=== PATIENT | female | born 1950 | race Caucasian/White ===

== ENCOUNTER 2018-12-25 05:29 | Day surgery (SDC) | payer MEDICARE, BC ==
[~2018-12-25] VITALS: Ht 160 cm; Wt 74.8 kg
[2018-12-25] VITALS (8 sets, daily range): BP systolic 128–152; BP diastolic 61–73; PULSE 66–76; RESP 16–22; Ht 160 cm; Wt 74.8 kg
[2018-12-25] MEDS ORDERED: SOD CHLORIDE 0.9% 1,000 ML IV SCH (06:00)
[2018-12-25] MEDS ORDERED: CYCLOPENTOLATE/PHENYLEPH 2 ML OPH OPER SCH (06:00)
[2018-12-25] MEDS ORDERED: DICLOFENAC 0.1% 2.5 ML OPH OPER SCH (06:00)
[2018-12-25] MEDS ORDERED: TROPICAMIDE 1% 15 ML OPH OPER SCH (06:00)
[2018-12-25] MEDS ORDERED: MOXIFLOXACIN 0.5% 3 ML OPH OPER SCH (06:00)
--- NOTE | 2018-12-25 06:20 | PREOPHP ---
DATE OF ADMISSION: 12/25/2018 HISTORY OF PRESENT ILLNESS: This 68-year-old patient is admitted for elective cataract surgery of he r left eye. 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 The anthony ent has had decreased vision over the last few years involving primarily the left eye. The patient's systemic history is positive for hypertension. Also, there is colitis and vertebral osteoporosis. CURRENT MEDICATIONS: Include: 1. Valsartan/HCTZ. 2. Voltaren gel. 3. Ibandronate. 4. Gabapentin. 5. Clonazepam. 6. Sulfasalazine. ALLERGIES: THERE ARE NO KNOWN ALLERGIES. PHYSICAL EXAMINATION: The visual acuity with best correction is 20/40 in the right eye and 20/50 in the left eye. Slit-lamp examination reveals anterior cortical and moderate nuclear sclerotic catarac t in the left eye. Applanation tonometry is 22 mmHg in both eyes. Examination of the retina reveals small optic disc cupping in both eyes. Examination of the macula reveals some hyperpigmentation in the macula of the left eye (patient was evaluated by a retina-vitreous surgeon preoperatively and a n otation was made that cataract surgery was indicated and that there may be some limitation of visual improvement after surgery). DIAGNOSIS: Nuclear sclerotic cataract, left eye. PLAN: Cataract extraction with lens implant, left eye. The risks and alternatives to the surgery de leon ve been discussed with the patient, as well as the hope for improvement of visual acuity, leading to a greater ability to perform activities of daily living. The patient understands the limitation prev iously described related to her myopic retinopathy and agrees to proceed with surgery. Dictated By: JHONATAN WEISS/OCTAVIO Conf#: [id number] DID#: [id number]
[2018-12-25] MEDS ORDERED: DEXAMETHASONE 4 MG/ML 1 ML INJ ONE (06:46)
[2018-12-25] MEDS ORDERED: TETRACAINE 0.5% 4 ML OPH ONE (06:46)
[2018-12-25] MEDS ORDERED: EPINEPHrine 1 MG INJ ONE (06:46)
[2018-12-25] MEDS ORDERED: LIDOCAINE 4% (MPF) 5 ML INJ ONE (06:46)
[2018-12-25] MEDS ORDERED: CARBACHOL 0.01% 1.5 ML OPH INJ ONE (06:46)
[2018-12-25] MEDS ORDERED: CEFAZOLIN 1 GM INJ ONE (06:46)
[2018-12-25] MEDS ORDERED: GENTAMICIN 80 MG INJ ONE (06:46)
[2018-12-25] MEDS ORDERED: VALS1TAB74 PO (06:58)
[2018-12-25] MEDS ORDERED: SULF500T5 PO (06:59)
[2018-12-25] MEDS ORDERED: GABA100C14 PO (06:59)
[2018-12-25] MEDS ORDERED: CLON-429 PO (07:00)
[2018-12-25] MEDS ORDERED: ESOM40CA51 PO (07:00)
[2018-12-25] MEDS ORDERED: CANA1000R PR (07:01)
--- NOTE | 2018-12-25 07:05 | PREAC ---
Date/Time of Note Date/Time of Note DATE: 12/25/18 TIME: 07:02 Anesthesia Eval and Record Evaluation Time Pre-Procedure Interview DATE: 12/25/18 TIME: 07:02 Age 68 Sex female NPO: 8 hrs Preoperative diagnosis Left eye cataract Planned procedure Cataract extraction with IOL insertion Past Medical History Past Medical History: Includes Cardio: HTN Pulm: Sleep Apnea GI: Other Surgery & Anesthesia Issues No known issue Meds Anticoagulation: No Beta Shakira within 24 hr: No Reason Beta Shakira not given: Pt. not on B-Shakira Reported Medications Mesalamine* (Canasa*) 1,000 Mg Supp, 1000 MG ID HS, SUPP.RECT 12/25/18 Clonazepam* (Klonopin*) 0.5 Mg Tab, 0.5 MG PO DAILY PRN for ANXIETY, TAB 12/25/18 Esomeprazole Magnesium (Esomeprazole Magnesium) 40 Mg Capsule.dr, 40 MG PO BEFORE BREAKFAST, #30 CAP 12/25/18 Gabapentin* (Gabapentin*) 100 Mg Capsule, 100 MG PO BID, #90 CAP 12/25/18 Sulfasalazine* (Sulfazine*) 500 Mg Tablet, 1000 MG PO TID, TAB 12/25/18 Valsartan-Hydrochlorothiazide (Valsartan-HCTZ) 80-12.5 Mg Tablet, 1 TAB PO DAILY, #30 TAB 12/25/18 Current Medications Diclofenac Sodium (Voltaren 0.1%) 1 drop Q5 MIN X 3 OPER Last administered on 12/25/18at 06:04; Admin Dose 1 DROP; Start 12/25/18 at 06:00 Tropicamide (Mydriacyl 1%) 1 drop Q5 MIN X3 OPER Last administered on 12/25/18at 06:04; Admin Dose 1 DROP; Start 12/25/18 at 06:00 Moxifloxacin HCl (Vigamox) 1 drop Q5 MIN X 3 OPER Last administered on 12/25/18at 06:04; Admin Dose 1 DROP; Start 12/25/18 at 06:00 Cyclopentolate/ Phenylephrine (Cyclomydril Oph 2 ml) 1 drop Q5 MIN X 3 OPER Last administered on 12/25/18at 06:04; Admin Dose 1 DROP; Start 12/25/18 at 06:00 Sodium Chloride 1,000 ml @ 25 mls/hr Q24H IV Last administered on 12/25/18at 06:05; Admin Dose 25 MLS/HR; Start 12/25/18 at 06:00 Meds reviewed: Yes Allergies Coded Allergies: No Known Allergies (Unverified Allergy, Unknown, 12/25/18) Allergies Reviewed: Yes Labs/Studies Labs Reviewed: Reviewed by anesthesiologist test: N/A Pre-procedure Exam Last vitals Vital Signs Date Temp Pulse Resp B/P (MAP) Pulse Ox O2 O2 Flow FiO2 Time Delivery Rate 12/25/18 97.1 66 18 146/65 99 Room Air 06:18 (92) Airway: Adequate mouth opening Mallampati: Mallampati II Teeth: Normal Lung: Normal Heart: Normal ASA Physical Status ASA physical status: 3 Emergency: None Planned Anesthetic General/MAC: MAC Planned Pain Management Parenteral pain med Pre-operative Attestations Prior to commencing anesthesia and surgery, the patient was re-evaluated, there was verification of: *The patient's identity *The results of appropriate recent lab work and preoperative vital signs *The above evaluation not changing prior to induction *Anesthetic plan, risk benefits, alternative and complications discussed with patient/family; questions answered; patient/family understands, accepts and wishes to proceed. EUGENIE SÁNCHEZ MD Dec 25, 2018 07:05
[2018-12-25] MEDS ORDERED: PROPOFOL 20 ML ONE (07:26)
[2018-12-25] MEDS ORDERED: FENTAnyl 50 MCG/ML VIAL IV PRN ×3 (08:00)
[2018-12-25] MEDS ORDERED: LABETALOL HCL 20MG INJ IV PRN (08:00)
[2018-12-25] MEDS ORDERED: DIPHENHYDRAMINE 50 MG INJ IV PRN (08:00)
[2018-12-25] MEDS ORDERED: MIDAZOLAM 1 MG/ML 2 ML INJ IV PRN (08:00)
[2018-12-25] MEDS ORDERED: EPHEDrine 25 MG/5 ML SYG IV PRN (08:00)
[2018-12-25] MEDS ORDERED: METOCLOPRAMIDE 10 MG INJ IV PRN (08:00)
[2018-12-25] MEDS ORDERED: OXYCODONE/ACETAMINOPHEN (5/325) TAB PO PRN ×2 (08:00)
[2018-12-25] MEDS ORDERED: ONDANSETRON 4 MG INJ IV PRN (08:00)
[2018-12-25] MEDS ORDERED: hydrALAzine 20 MG INJ IV PRN (08:00)
[2018-12-25] MEDS ORDERED: MEPERIDINE 25 MG INJ IV PRN (08:00)
[2018-12-25] MEDS ORDERED: NA HYALURONATE/CHONDROITIN 0.5 ML SYG OP ONE (08:04)
[2018-12-25] MEDS ORDERED: NA HYALURONATE/CHONDROITIN 0.5 ML SYG ONE (08:19)
--- NOTE | 2018-12-25 08:19 | SIPON ---
Date/Time of Note Date/Time of Note DATE: 12/25/18 TIME: 08:18 Operative Report Preoperative Diagnosis cortical & nuclear sclerotic cataract os Postoperative Diagnosis same Operation/Procedure Performed cataract extractionn with lens implant os Surgeon jhonatan vera technical staff assistant none Anesthesia: MAC Estimated blood loss: none Transfusion Required none Specimen none Grafts/Implants posterior chamber lens implant Complications none JHONATAN VERA MD Dec 25, 2018 08:19
--- NOTE | 2018-12-25 08:54 | PAC ---
Date/Time of Note Date/Time of Note DATE: 12/25/18 TIME: 08:54 Post-Anesthesia Notes Post-Anesthesia Note Last documented vital signs Vital Signs Date Temp Pulse Resp B/P (MAP) Pulse Ox O2 O2 Flow FiO2 Time Delivery Rate 12/25/18 72 21 128/63 96 Room Air 08:40 (84) 12/25/18 98.3 08:23 Activity: WNL Respiratory function: WNL Cardiovascular function: WNL Mental status: Baseline Pain reasonably controlled: Yes Hydration appropriate: Yes Nausea/Vomiting absent: Yes Comments BT: 98.5 EUGENIE SÁNCHEZ MD Dec 25, 2018 08:54
--- NOTE | 2018-12-25 09:35 | OPR ---
DATE OF OPERATION: 12/25/2018 PREOPERATIVE DIAGNOSIS: Nuclear sclerotic and cortical cataract, left eye. POSTOPERATIVE DIAGNOSIS: Nuclear sclerotic and cortical cataract, left eye. OPERATION PERFORMED: Cataract extraction with lens implant, left eye. SURGEON: Jhonatan Lucia MD. ANESTHESIA: Dr. Olsen. OPERATION: Phacoemulsification with posterior chamber intraocular lens implant, left eye. PROCEDURE: The patient was brought to the operating room and placed on the table with an IV in place and the patient attached to an bus monitor. Oxygen was given via face mask. After some intravenous sedation was administered, local anesthesia was given using Xylocaine 2% with epinephrine, mixed with Marcaine 0.5%. This was given in a lid block and retrobulbar injection. The p atient was then prepped and draped in the usual sterile manner. A wire lid speculum was inserted between the lids of the left eye. A Superblade was used to enter the anterior chamber at the corneoscleral limbus at the 10:30 o'clock position. A separate incision was made using a 3.0 mm keratome which entered the corneoscleral junction at the 12 o'clock position. Thr ough this 3 mm opening, an irrigating cystotome was introduced into the anterior chamber. The chamber was filled with Viscoat and an anterior capsulotomy was performed. Balanced salt solution was then u sed for hydrodissection of the lens. A phacoemulsification handpiece was then brought into the field and introduced into the anterior chamber. The lens nucleus was emulsified using a deep groove and cr acking the nucleus into quadrants. Following this, each quadrant was aspirated and emulsified at the pupillary margin. After this was completed, the irrigation/aspiration handpiece was brought to the field, introduced in to the posterior chamber, and the lens cortical material was removed. When this was completed, additi onal Viscoat was injected into the anterior and posterior chambers. The 3 mm opening had its internal lips enlarged, and then the posterior chamber intraocular lens acosta uring 13.0 diopters posterior chamber intraocular lens ([employer] model LI61AO) was then injected into the posterior chamber using the lens injector system. After the leading haptic wa s introduced into the capsular bag and the lens optic was present in the center of the eye, the injec tor was removed and the trailing haptic was grasped with non-toothed forceps and introduced into the capsular fold superiorly. A [place] hook was then used to rotate the intraocular lens so that the lip s were oriented in the horizontal meridian. One 10-0 nylon suture was placed across the wound. Prior to tying, the irrigation/aspiration handpiece was reintroduced into the anterior chamber to rem ove the Viscoat. Miochol was instilled to constrict the pupil, and then the 10-0 nylon suture was tie d. The ends were cut short and then the knot was buried. Then, 0.5 mL of dexamethasone and 0.5 mL of Ancef were injected into the sub-Tenon space in the infer ior fornix. Ciloxan drops were then placed on the surface of the eye. The speculum was removed and a patch was applied. The patient then left the operating room in satisfactory condition. Dictated By: JHONATAN WEISS/OCTAVIO Conf#: [id number] DID#: [id number]
== END 2018-12-25 09:40 | disposition home or self-care (01) ==
LOC: SDS 05:29
PROVIDERS: ATTEND Ophthalmology
DX: H25.11 Age-related nuclear cataract, right eye (principal); I10 Essential (primary) hypertension
CPT/HCPCS: 66984; J0171; J0690; J1100; J1580; V2632

== ENCOUNTER 2019-02-12 05:20 | Day surgery (SDC) | payer MEDICARE, BC ==
--- NOTE | 2019-02-11 13:08 | PREOPHP ---
DATE OF ADMISSION: 02/12/2019 HISTORY OF PRESENT ILLNESS: This 68-year-old patient is admitted for elective cataract surgery of th e right eye. The patient has a history of high myopia with myopic retinopathy changes present in bot h eyes. The patient has had decreased vision, primarily in the left eye and 1-1/2 months ago underwe nt cataract surgery in that eye with excellent visual recovery. 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 She is therefore admitted for having cataract surgery in the right eye despite th e fact that the visual acuity has not decreased significantly. The patient denies prior history of e ye disease or injury. The patient's systemic history is positive for hypertension, colitis and verte bral osteoporosis. CURRENT MEDICATIONS INCLUDE: 1. Valsartan/hydrochlorothiazide. 2. Voltaren gel. 3. Ibandronate. 4. Gabapentin. 5. Clonazepam. 6. Sulfasalazine. ALLERGIES: THERE ARE NO KNOWN ALLERGIES. PHYSICAL EXAMINATION: The visual acuity with correction is 20/40 in the right eye and 20/30 in the l eft eye. Slit lamp examination notes the patient to have anterior cortical and nuclear sclerotic cat aract in the right eye. The left eye has a posterior chamber intraocular lens in appropriate positio n. Applanation tonometry is 20 mmHg in both eyes. Examination of the retina reveals the patient to have hyperpigmentation in the macula due to the high myopia. DIAGNOSIS: Nuclear sclerotic cataract, right eye. PLAN: Cataract extraction with lens implant, right eye. The risks and alternatives to the surgery h ave been previously discussed with her. The patient understands this and agrees to proceed with surg brit in hopes that she can use both eyes simultaneously and she can improve the vision in her right ey e, leading to greater ability to perform activities of daily living. Dictated By: JHONATAN WEISS/OCTAVIO Conf#: [id number] DID#: [id number]
[~2019-02-12] VITALS: Ht 160 cm; Wt 74.1 kg
[2019-02-12] VITALS (7 sets, daily range): BP systolic 129–142; BP diastolic 66–78; PULSE 68–77; RESP 16–28; Ht 160 cm; Wt 74.1 kg
[~2019-02-12 05:20] MED LIST: CANA1000R PR; CLON-429 PO; ESOM40CA51 PO; GABA100C14 PO; SULF500T5 PO; VALS1TAB74 PO
[2019-02-12] MEDS ORDERED: TROPICAMIDE 1% 15 ML OPH RIGHT EYE SCH ×2 (05:30→07:30)
[2019-02-12] MEDS ORDERED: DICLOFENAC 0.1% 2.5 ML OPH RIGHT EYE SCH ×2 (05:30→07:30)
[2019-02-12] MEDS ORDERED: MOXIFLOXACIN 0.5% 3 ML OPH RIGHT EYE SCH ×2 (05:30→07:30)
[2019-02-12] MEDS ORDERED: SOD CHLORIDE 0.9% 1,000 ML IV SCH ×3 (05:30→07:30)
[2019-02-12] MEDS ORDERED: CYCLOPENTOLATE/PHENYLEPH 2 ML OPH RIGHT EYE SCH ×2 (05:30→07:30)
[2019-02-12] MEDS ORDERED: CEFAZOLIN 1 GM INJ ONE (06:49)
[2019-02-12] MEDS ORDERED: TETRACAINE 0.5% 4 ML OPH ONE (06:50)
[2019-02-12] MEDS ORDERED: DEXAMETHASONE 4 MG/ML 1 ML INJ ONE (06:50)
[2019-02-12] MEDS ORDERED: GENTAMICIN 80 MG INJ ONE (06:50)
[2019-02-12] MEDS ORDERED: CARBACHOL 0.01% 1.5 ML OPH INJ ONE (06:50)
[2019-02-12] MEDS ORDERED: EPINEPHrine 1 MG INJ ONE (06:50)
[2019-02-12] MEDS ORDERED: LIDOCAINE 4% (MPF) 5 ML INJ ONE (06:50)
[2019-02-12] MEDS ORDERED: NA HYALURONATE/CHONDROITIN 0.5 ML SYG ONE (06:51)
--- NOTE | 2019-02-12 07:34 | PREAC ---
Date/Time of Note Date/Time of Note DATE: 02/12/19 TIME: 07:33 Anesthesia Eval and Record Evaluation Time Pre-Procedure Interview DATE: 02/12/19 TIME: 07:33 Age 68 Sex female NPO: 8 hrs Preoperative diagnosis catharact Planned procedure cataract extraction Past Medical History Past Medical History: Includes Cardio: HTN GI: Other (colitis ) Psych: Anxiety Surgery & Anesthesia Issues No known issue Meds Anticoagulation: No Beta Shakira within 24 hr: No Reason Beta Shakira not given: Pt. not on B-Shakira Reported Medications Mesalamine* (Canasa*) 1,000 Mg Supp, 1000 MG NC HS, SUPP.RECT 12/25/18 Clonazepam* (Klonopin*) 0.5 Mg Tab, 0.5 MG PO DAILY PRN for ANXIETY, TAB 12/25/18 Esomeprazole Magnesium (Esomeprazole Magnesium) 40 Mg Capsule.dr, 40 MG PO BEFORE BREAKFAST, #30 CAP 12/25/18 Gabapentin* (Gabapentin*) 100 Mg Capsule, 100 MG PO BID, #90 CAP 12/25/18 Sulfasalazine* (Sulfazine*) 500 Mg Tablet, 1000 MG PO TID, TAB 12/25/18 Valsartan-Hydrochlorothiazide (Valsartan-HCTZ) 80-12.5 Mg Tablet, 1 TAB PO DAILY, #30 TAB 12/25/18 Current Medications Cyclopentolate/ Phenylephrine (Cyclomydril Oph 2 ml) 1 drop Q5 MIN X 3 RIGHT EYE Last administered on 02/12/19at 06:01; Admin Dose 1 DROP; Start 02/12/19 at 05:30 Diclofenac Sodium (Voltaren 0.1%) 1 drop Q5 MIN X 3 RIGHT EYE Last administered on 02/12/19at 06:01; Admin Dose 1 DROP; Start 02/12/19 at 05:30 Moxifloxacin HCl (Vigamox) 1 drop Q5 MIN X 3 RIGHT EYE Last administered on 02/12/19at 06:01; Admin Dose 1 DROP; Start 02/12/19 at 05:30 Sodium Chloride 1,000 ml @ 25 mls/hr Q24H IV Last administered on 02/12/19at 06:00; Admin Dose 25 MLS/HR; Start 02/12/19 at 05:30 Tropicamide (Mydriacyl 1%) 1 drop Q5 MIN X3 RIGHT EYE Last administered on 02/12/19at 06:00; Admin Dose 1 DROP; Start 02/12/19 at 05:30 Meds reviewed: Yes Allergies Coded Allergies: No Known Allergies (Unverified Allergy, Unknown, 02/12/19) Allergies Reviewed: Yes Labs/Studies Labs Reviewed: Reviewed by anesthesiologist test: N/A Pre-procedure Exam Last vitals Vital Signs Date Temp Pulse Resp B/P (MAP) Pulse Ox O2 O2 Flow FiO2 Time Delivery Rate 02/12/19 96.9 70 18 142/67 92 Room Air 05:55 (92) Airway: Adequate mouth opening, Adequate thyromental dist Mallampati: Mallampati I Teeth: Normal Lung: Normal Heart: Normal ASA Physical Status ASA physical status: 2 Emergency: None Pre-operative Attestations Prior to commencing anesthesia and surgery, the patient was re-evaluated, there was verification of: *The patient's identity *The results of appropriate recent lab work and preoperative vital signs *The above evaluation not changing prior to induction *Anesthetic plan, risk benefits, alternative and complications discussed with patient/family; questions answered; patient/family understands, accepts and wishes to proceed. ANYI MAYS DO Feb 12, 2019 07:34
[2019-02-12] MEDS ORDERED: PROPOFOL 20 ML ONE (07:37)
[2019-02-12] MEDS ORDERED: LIDOCAINE 2% (SDV) 5 ML INJ ONE (07:37)
[2019-02-12] MEDS ORDERED: ETOMIDATE 20 MG INJ ONE (07:37)
[2019-02-12] MEDS ORDERED: FENTAnyl 50 MCG/ML VIAL ONE (08:02)
--- NOTE | 2019-02-12 08:28 | SIPON ---
Date/Time of Note Date/Time of Note DATE: 02/12/19 TIME: 08:27 Operative Report Preoperative Diagnosis nuclear sclerotic cataract od Postoperative Diagnosis same Operation/Procedure Performed cataract extraction with lens implant od Surgeon jhonatan vera dental hygiene administrative assistant none Anesthesia: MAC Estimated blood loss: none Transfusion Required none Specimen none Grafts/Implants posterior chamber lens implant Complications none JHONATAN VERA MD Feb 12, 2019 08:28
--- NOTE | 2019-02-12 08:46 | PAC ---
Date/Time of Note Date/Time of Note DATE: 02/12/19 TIME: 08:46 Post-Anesthesia Notes Post-Anesthesia Note Last documented vital signs Vital Signs Date Temp Pulse Resp B/P (MAP) Pulse Ox O2 O2 Flow FiO2 Time Delivery Rate 02/12/19 68 24 141/78 95 Room Air 08:37 (99) 02/12/19 97.8 08:25 Activity: WNL Respiratory function: WNL Cardiovascular function: WNL Mental status: Baseline Pain reasonably controlled: Yes Hydration appropriate: Yes Nausea/Vomiting absent: Yes ANYI MAYS DO Feb 12, 2019 08:46
--- NOTE | 2019-02-12 11:52 | OPR ---
DATE OF OPERATION: 02/12/2019 PREOPERATIVE DIAGNOSIS: Nuclear sclerotic cataract, right eye. POSTOPERATIVE DIAGNOSIS: Nuclear sclerotic cataract, right eye. OPERATION PERFORMED: Cataract extraction with lens implant, right eye. SURGEON: Jhonatan Lucia MD ANESTHESIOLOGIST: Saulo Elise DO ANESTHESIA: Local standby. PROCEDURE: The patient was brought to the operating room and placed on the table with an IV in place and the patient attached to an monitor tech. Oxygen was given via face mask. After some intravenous sedation was administered, local anesthesia was given using Xylocaine 2% with epinephrine, mixed with Marcaine 0.5%. This was given in a lid block and retrobulbar injection. The patient was then prepped and draped in the usual sterile manner. A wire lid speculum was inserted between the lids of the right eye. A Superblade was used to enter t he anterior chamber at the corneoscleral limbus at the 10:30 o'clock position. A separate incision w as made using a 3.0-mm keratome which entered the corneoscleral junction at the 12 o'clock position. Through this 3-mm opening, an irrigating cystotome was introduced into the anterior chamber. The ch shanda was filled with Viscoat and an anterior capsulotomy was performed. Balanced salt solution was then used for hydrodissection of the lens. A phacoemulsification handpiece was then brought into the field and introduced into the anterior chamber. The lens nucleus was emulsified using a deep groove and cracking the nucleus into quadrants. Following this, each quadrant was aspirated and emulsified at the pupillary margin. After this was completed, the irrigation/aspiration handpiece was brought to the field, introduced in to the posterior chamber, and the lens cortical material was removed. When this was completed, addit ional Viscoat was injected into the anterior and posterior chambers. The 3-mm opening had its internal lips enlarged, and then the posterior chamber intraocular lens acosta uring 13.5 diopters ([employer] Model LI61AO) was then injected into the posterior c hamber using the lens injector system. After the leading haptic was introduced into the capsular bag and the lens optic was present in the center of the eye, the injector was removed and the trailing h aptic was grasped with non-toothed forceps and introduced into the capsular fold superiorly. A [employer] ey hook was then used to rotate the intraocular lens so that the lips were oriented in the horizontal meridian. One 10-0 nylon suture was placed across the wound. Prior to tying, the irrigation/aspiration handpiece was reintroduced into the anterior chamber to rem ove the Viscoat. Miochol was instilled to constrict the pupil, and then the 10-0 nylon suture was ti ed. The ends were cut short and then the knot was buried. Then, 0.5 mL of dexamethasone and 0.5 mL of Ancef were injected into the sub-Tenon space in the infer ior fornix. Ciloxan drops were then placed on the surface of the eye. The speculum was removed and a patch was applied. The patient then left the operating room in satisfactory condition. Dictated By: JHONATAN WEISS/OCTAVIO Conf#: [id number] DID#: [id number]
== END 2019-02-12 09:22 | disposition home or self-care (01) ==
LOC: SDS 05:20
PROVIDERS: ATTEND Ophthalmology
DX: H25.11 Age-related nuclear cataract, right eye (principal); I10 Essential (primary) hypertension; M81.0 Age-related osteoporosis without current pathological fracture
CPT/HCPCS: 66984; J0171; J0690; J1100; J1580; J3010; V2632